=== PATIENT | female | born 1995 | race Caucasian/White ===

== ENCOUNTER 2021-01-13 21:11 | Observation (INO) | payer BC, SELFPAY ==
--- NOTE | ~2021-01-13 | CT_ITS ---
EXAMINATION: CTA chest PE protocol DATE: 01/14/2021 00:01 CDT INDICATION: Shortness of breath and chest pain. Dyspnea. TECHNIQUE: Computed tomographic angiography (CTA) of the chest was performed with 100 mL Omnipaque-35 0 intravenous contrast. The dose-length product was 1044.33 mGy-cm. Maximum intensity projection 3D-r econstructions of the aorta and other arteries were constructed by the technologist on a separate wor kstation. COMPARISON: None. FINDINGS: Study is technically adequate. Small filling defects noted in left lower lobe segmental and subsegmental pulmonary arteries, consistent with pulmonary embolism, small thrombus burden. Heart si ze upper normal. No significant pleural or pericardial effusion. No evidence for aortic aneurysm or d issection. No mediastinal or hilar lymphadenopathy. Upper abdomen is unremarkable. Small hiatal herni a. No acute osseous abnormality. IMPRESSION: 1. Small filling defects left lower lobe segmental/subsegmental pulmonary arteries, consistent with p ulmonary embolism, small thrombus burden. Reviewed, dictated and finalized at location A. IMPRESSION: 1. Small filling defects left lower lobe segmental/subsegmental pulmonary arter ies, consistent with pulmonary embolism, small thrombus burden.
--- NOTE | ~2021-01-13 | US_ITS ---
EXAMINATION: US venous doppler [facility] DATE: 01/14/2021 07:59 INDICATION: Chest pain. TECHNIQUE: Grayscale ultrasound images without and with compression and Doppler ultrasound images of the bilateral lower extremity veins were obtained. COMPARISON: None. FINDINGS: The visualized portions of right common femoral vein, profunda (deep) femoral vein, femoral vein, pop liteal vein, peroneal veins, posterior tibial veins, and greater saphenous vein outflow are patent. The visualized portions of left common femoral vein, profunda femoral vein, femoral vein, popliteal v ein, peroneal veins, posterior tibial veins, and greater saphenous vein outflow are patent. IMPRESSION: 1. No deep venous thrombosis. Reviewed, dictated and finalized at location B.
--- NOTE | ~2021-01-13 | XR_ITS ---
EXAMINATION: XR chest 2V 01/13/2021 22:31 INDICATION: Right-sided chest pain PROCEDURE: 2 view chest COMPARISON: No prior studies for comparison. FINDINGS: The lungs are clear. The cardiomediastinal silhouette is within normal limits. There are no pleural effusions. There is no pneumothorax suspected. IMPRESSION: 1: NO ACUTE CARDIOPULMONARY DISEASE. Reviewed, dictated and finalized at location A.
[2021-01-13 21:16] VITALS: BP 158/86; PULSE 95; RESP 18; TEMP 36.2; O2SAT 99
[2021-01-13 21:55] VITALS: PULSE 92
[2021-01-13 22:00] VITALS: BP 129/73; PULSE 92; RESP 23; O2SAT 100
[2021-01-13 22:02] VITALS: BP 118/72; PULSE 96; RESP 21; O2SAT 98
[2021-01-13 23:24] LABS: Add Urine Microscopic? YES; Appearance Urine Clear (Clear); Bacteria Urine Trace /hpf; Bilirubin Urine Negative (Negative); Blood Urine Negative (Negative); Color Urine Straw (Yellow); Glucose Urine UA Negative (Negative); Ketones Urine Negative (Negative); Leukocyte Esterase Ur Trace LEU/UL (Negative); Nitrate Urine Negative (Negative); Protein Urine Negative (Negative); RBC Urine 0-2 /hpf (0-2); Specific Grav Ur 1.006 (1.001-1.035); Squamous Epithelial Cell Urine Occasional /hpf (Few); Urobilinogen Urine Negative mg/dL (<2.0)
--- NOTE | 2021-01-13 23:31 | ED.GENADULT ---
HPI - General Adult General Chief complaint: Unspecified <ALICJA Roberts - Last Filed: 01/14/21 01:39> Stated complaint: pain with deep inhalation <ALICJA Roberts - Last Filed: 01/14/21 01:39> Time Seen by Provider: 01/13/21 22:07 <ALICJA Roberts - Last Filed: 01/14/21 01:39> Source: patient <ALICJA Roberts - Last Filed: 01/14/21 01:39> Mode of arrival: ambulatory <ALICJA Roberts - Last Filed: 01/14/21 01:39> Limitations: no limitations <ALICJA Roberts - Last Filed: 01/14/21 01:39> History of Present Illness HPI narrative: Patient is a 25 year old female who presents complaining of right sided chest pain sudden onset this pm. She reports pain is reproducable but also reports shortness of breath. She reports 2nd dose of Moderna vaccine earlier today and reports feeling worse after vaccination. She denies taking otc medications prior to arrival. Patient denies significant medical history. <ALICJA Roberts - Last Filed: 01/14/21 01:39> MD complaint: chest pain <ALICJA Roberts - Last Filed: 01/14/21 01:39> Related Data Home medications: Home Medications Medication Instructions Recorded Confirmed phentermine 15 mg PO DAILY 01/13/21 <ALICJA Roberts - Last Filed: 01/14/21 01:39> Allergies/adverse reactions: Allergies Allergy/AdvReac Type Severity Reaction Status Date / Time No Known Allergies Allergy Verified 01/13/21 22:00 <ALICJA Roberts - Last Filed: 01/14/21 01:39> Review of Systems Review of Systems: Narrative: CONSTITUTIONAL: Denies fever, chills, or sweats. EYES: Denies visual changes, redness, or discharge. ENT: Denies rhinorrhea, congestion, sore throat, or otalgia. CARDIOVASCULAR: Reports chest pain, denies palpitations, or edema. RESPIRATORY: Denies cough, reports dyspnea. GASTROINTESTINAL: Denies abdominal pain, nausea, vomiting, or diarrhea. GENITOURINARY: Denies dysuria or hematuria. SKIN: Denies rash or itching. MUSCULOSKELETAL: Denies back pain, joint pain, or myalgia. NEUROLOGIC: Denies headache, numbness, dizziness, or weakness. PSYCHIATRIC: Denies anxiety or depression. <ALICJA Roberts - Last Filed: 01/14/21 01:39> [facility] [place] Surgical History Surgical History: Surgical History History of tonsillectomy and adenoidectomy <ALICJA Roberts - Last Filed: 01/14/21 01:39> Social History Social History: Social History Smoking status: Current every day smoker Tobacco type: e-cigarettes/vaping Alcohol intake: current Alcohol use details: Occasional Substance use: never <ALICJA Roberts - Last Filed: 01/14/21 01:39> Comments At the time of signature, I have reviewed and agree with nursing past medical, surgical, social, and family history unless otherwise noted. Please see nursing chart for further information. There is no relevant family history pertinent to the presenting complaint. <ALICJA Roberts - Last Filed: 01/14/21 01:39> Exam Narrative: Exam Narrative: GENERAL: Well-appearing, well-nourished, and in no acute distress. HEAD: Normocephalic, atraumatic. EYES: EOMI. No redness or drainage. Conjunctiva are normal. ENT: Mucous membranes pink and moist. CHEST: No respiratory distress. Clear to auscultation. HEART: Regular rate and rhythm. No murmur appreciated. Normal peripheral pulses. GI: Soft, nontender without rebound, or guarding. No distention. Bowel sounds normal in all quadrants. MUSCULOSKELETAL: No bony tenderness. EXTREMITIES: Normal range of motion. No edema. SKIN: Warm, dry, no rash. NEURO: No focal deficits. Alert and oriented x3. Gait steady. PSYCH: Normal affect. No signs of depression or anxiety. 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
[2021-01-13 23:39] LABS: Basophils Percent Auto 0.4 % (0.2-1.2); Eosinophils Absolute Auto 0.2 K/mm3 (0-0.3); Eosinophils Percent Auto 2.4 % (0-4.4); Hemoglobin 12.3 g/dL (12.0-15.0); Immature Granulocyte Absolute 0.03 K/mm3 (0.00-0.031); Immature Granulocyte Percent A 0.3 % (0-0.5); Lymphocytes Absolute Auto 1.67 K/mm3 (0.9-3.2); Lymphocytes Percent Auto 16.6 % (18.3-44.2); Mean Corpuscular HGB Conc 32.4 g/dl (32-36); Mean Corpuscular Hemoglobin 25.8 pg (26-34); Mean Corpuscular Volume 79.8 fl (80-100); Mean Platelet Volume 8.5 fl (7.4-10.4); Monocytes Absolute Auto 0.6 K/mm3 (0.1-0.6); Monocytes Percent Auto 5.5 % (2.6-8.5); Neutrophils Absolute Auto 7.5 K/mm3 (1.3-6.7); Neutrophils Percent Auto 74.8 % (45.5-73.1); Platelet Count Result 243 k/mm3 (150-375); Red Blood Count 4.76 M/mm3 (4.2-5.4); Red Cell Distribution Width 13.3 % (11.5-14.5); White Blood Count 10.1 K/mm3 (4.5-10.0)
--- NOTE | 2021-01-13 23:39 | PC.NURSE ---
CT scan delayed due to pt request for Zofran. Will call CT scan after pt is medicated.
[2021-01-13 23:41] LABS: Estimated CRCL calculation 139 ml/min; Estimated Glomerular Filt Rate > 60
[2021-01-13] MEDS: ONDANSETRON INJ 4 MG/2 ML VIAL IV PUSH (23:48)
[2021-01-14] VITALS (7 sets, daily range): BP systolic 125–141; BP diastolic 55–85; PULSE 79–101; RESP 16–26; TEMP 36.2–36.6; O2SAT 94–100; BMI 52.2
[2021-01-14 00:04] LABS: Troponin I < 0.012 ng/mL (0.000-0.034)
--- NOTE | 2021-01-14 00:08 | ECG_ITS ---
Measurements Intervals [place] Rate: 87 P: 20 SC: 171 QRS: 39 QRSD: 80 T: 3 QT: 321 QTc: 388 Interpretive Statements SINUS RHYTHM LOW QRS VOLTAGE IN PRECORDIAL LEADS MINIMAL Q WAVES- INFERIOR LEADS BORDERLINE T WAVE ABNORMALITY- ANTERIOR LEADS BORDERLINE ECG Electronically Signed On 01-14-2021 7:00:34 CDT by Adebayo Max D.O.
[2021-01-14 00:23] LABS: Alanine Aminotransferase 15 U/L (4-35); Albumin Level 4.1 g/dL (3.5-5.1); Alkaline Phosphatase 86 U/L (38-126); Anion Gap 7 mmol/L (8-16); Aspartate Amino Transferase 25 U/L (14-36); Bilirubin,Total 0.1 mg/dL (0.2-1.3); Blood Urea Nitrogen 10 mg/dL (7-17); Calcium 9.2 mg/dL (8.4-10.2); Carbon Dioxide 30 mmol/L (22-30); Chloride 104 mmol/L (98-107); Estimated CRCL calculation 139 ml/min; Estimated Glomerular Filt Rate > 60; Glucose 86 mg/dL (65-105); Potassium 3.5 mmol/L (3.4-5.0); Sodium 141 mmol/L (137-145)
[2021-01-14] MEDS: ENOXAPARIN 30 MG/0.3 ML SYRINGE SUB-Q (01:50)
[2021-01-14] MEDS: ENOXAPARIN 120 MG/0.8 ML SYRINGE SUB-Q (02:01)
--- NOTE | 2021-01-14 02:17 | ADMGEN ---
This patient, Laura Spence, was admitted to [address] [place] [address] Room 300-01. Patient/family oriented to hospital policies and general routines including ID bracelet, bed and alarms, visiting hours, pain management, procedures, bathroom and other care routines, personal items, smoking policy, room service/diet, and visiting hours. Information on how to activate the Rapid Response Team has been discussed. Patient/Family are encouraged to report perceived risks to care and to ask questions if they do not understand what they are told or what they should do.
[2021-01-14] MEDS: HYDROcodone/acetaminophen (*CRX) 5-325 MG TABLET 1 TAB PO (04:25)
--- NOTE | 2021-01-14 12:15 | PM.SD2 ---
Same Day Admit/Disch: HPI History of Present Illness Chief complaint: Pulmonary Embolism Narrative: Laura Spence is a 25 year old healthy female who presents to ED with complaints of right-sided chest pain. Patient had her COVID vaccine yesterday morning. Last evening, she developed lightheadedness, dizziness and chest pain with deep breathing. Pain is mostly under her right breast and in right flank and back. Sudden onset. Tylenol did help the pain. She has chronic headaches that she describes as migraine which she has once a day but no headache currently. She has never had this type of chest pain before. No long car rides or plane rides. No prolonged bedrest. No pedal edema. Does complain of right calf and thigh pain. Her maternal great grandmother had DVT but no other family members with VTE. No fevers. She does feel chilled at times since admission. No anosmia and dysgeusia. She does have heavy menses and her last menstrual period was 2 weeks ago. No dysuria or hematuria. No GI symptoms. She is on phentermine and has lost about 10 lb since starting this medication about a month ago. No diabetes or thyroid disease. Because of these symptoms she presented to the emergency room for evaluation. She is on Nexplanon. [facility] Past Medical History Medical History No pertinent past medical history Surgical History Surgical History History of tonsillectomy and adenoidectomy Family History Family History Other DVT (deep venous thrombosis) Diabetes mellitus Social History Social History Social History: Patient vapes daily. Occasional alcohol use about once every 2 weeks. She lives at home with her roommate and her . No history of drug use. She is not currently working. She is a full code. She nominated her mother to be the individual would make medical decisions for her if she is not able. Smoking status: Current every day smoker Tobacco type: e-cigarettes/vaping Alcohol intake: current Drinks per week: 1 Alcohol use details: Occasional Substance use: never Gender identity (if verbalized by the patient): Female Spiritual care concerns: No Same Day Admit/Disch: Med Pre-admit Medications Home Medications Medication Instructions Recorded Confirmed Type phentermine 15 mg PO BID 01/13/21 01/14/21 History Exam Narrative: Exam Narrative: AF 97.1 125/55 79 20 100% ra Gen - well-nourished, well-developed female in no acute respiratory distress who is nontoxic-appearing lying semi recumbent in bed HEENT - normocephalic. Atraumatic. Pupils equal round and reactive. Extraocular motions intact. Sclera clear and anicteric. Nares patent with ring in place. Oropharynx was clear. No oral lesions. Moist mucous membranes. Tongue was midline and was pierced. Palate gretta symmetrically. No facial asymmetry. Neck - neck was supple. No dominant adenopathy, thyromegaly or masses. No axillary adenopathy. 2+ carotid upstrokes without bruits. Chest - lungs are clear to auscultation bilaterally. No wheezes or crackles. Breast exam was deferred. CV - heart was regular rate and rhythm. S1-S2. No murmurs gallops or rubs. Abd - abdomen was soft. Nontender. Nondistended. Positive bowel sounds. No organomegaly or masses. Ext - no clubbing, cyanosis or edema. 2+ DP pulses bilaterally. Negative Moustapha's Neuro - patient is alert and oriented x4. Strength is 5/5 in both upper and lower extremities. Cranial nerves 2-12 are intact. Speech is clear. Psych - normal mood and affect. Patient is pleasant and cooperative. Skin - warm and dry. No rashes noted. DS: Data Data Completed and Pending Labs on day of discharge: Labs from last 24 hours 01/13/21 01/13/21 01/13/21 2
[2021-01-14] MEDS: APIXABAN 5 MG TABLET 10 MG PO (12:28)
== END 2021-01-14 13:24 | disposition home or self-care (01) ==
LOC: ANHED 01-14 00:35 → ANH3MEDSUR 01-14 01:50
PROVIDERS: Admitting Provider Internal Medicine; Emergency Provider Nurse Practitioner; PCP Nurse Practitioner; Visit Provider Internal Medicine
DX: I26.94 Multiple subsegmental thrombotic pulmonary emboli without acute cor pulmonale (principal); F17.290 Nicotine dependence, other tobacco product, uncomplicated
CPT/HCPCS: 36415; 71046; 71275; 80053; 81001; 81025; 84484; 85025; 93005; 93970; 96365; 96372; 96374; 99285; A9270; G0378; J0131; J1650; J2405; Q9967

== ENCOUNTER 2022-02-23 21:46 | Emergency (ER) | payer BC, OTHER, SELFPAY ==
--- NOTE | ~2022-02-23 | XR_ITS ---
EXAMINATION: XR chest 2V Exam Date/Time: 02/23/2022 22:40 CDT HISTORY: chest pain and shortness of breath,X1 WK,HX PE Comparison: 01/13/2021. RESULT: Lines, tubes, and devices: None. Lungs and pleura: Clear. Cardiomediastinal silhouette: Stable cardiomediastinal silhouette. Other: No acute osseous or upper abdominal finding. IMPRESSION: No acute cardiopulmonary process. Reviewed, dictated and finalized at location K.
--- NOTE | 2022-02-23 21:50 | ECG_ITS ---
Measurements Intervals [place] Rate: 70 P: 26 [place]: 176 QRS: 47 QRSD: 110 T: 15 QT: 340 QTc: 368 Interpretive Statements SINUS RHYTHM MINIMAL Q WAVES- INFERIOR LEADS BORDERLINE ECG Electronically Signed On 02-24-2022 6:14:55 CDT by Adebayo Max D.O.
[2022-02-23 21:58] VITALS: BP 138/73; PULSE 66; RESP 16; TEMP 36.9; O2SAT 99
[2022-02-23 22:15] LABS: Basophils Absolute Auto 0.1 K/mm3 (0.0-0.1); Basophils Percent Auto 0.4 % (0.2-1.2); Eosinophils Absolute Auto 0.2 K/mm3 (0-0.3); Eosinophils Percent Auto 1.2 % (0-4.4); Hematocrit 39.7 % (37.0-47.0); Hemoglobin 12.5 g/dL (12.0-15.0); Immature Granulocyte Absolute 0.11 K/mm3 (0.00-0.031); Immature Granulocyte Percent A 0.7 % (0-0.5); Lymphocytes Absolute Auto 3.13 K/mm3 (0.9-3.2); Lymphocytes Percent Auto 21.2 % (18.3-44.2); Mean Corpuscular HGB Conc 31.5 g/dl (32-36); Mean Corpuscular Volume 79.2 fl (80-100); Mean Platelet Volume 8.4 fl (7.4-10.4); Monocytes Absolute Auto 0.9 K/mm3 (0.1-0.6); Monocytes Percent Auto 6.2 % (2.6-8.5); Neutrophils Absolute Auto 10.4 K/mm3 (1.3-6.7); Neutrophils Percent Auto 70.3 % (45.5-73.1); Platelet Count Result 289 k/mm3 (150-375); Red Blood Count 5.01 M/mm3 (4.2-5.4); Red Cell Distribution Width 13.7 % (11.5-14.5); White Blood Count 14.8 K/mm3 (4.5-10.0)
[2022-02-23 22:26] LABS: Alanine Aminotransferase 21 U/L (6-35); Albumin Level 4.6 g/dL (3.5-5.1); Alkaline Phosphatase 95 U/L (38-126); Anion Gap 6 mmol/L (8-16); Aspartate Amino Transferase 20 U/L (14-36); Bilirubin,Total < 0.1 mg/dL (0.2-1.3); Blood Urea Nitrogen 14 mg/dL (7-17); Calcium 9.3 mg/dL (8.4-10.2); Carbon Dioxide 28 mmol/L (22-30); Chloride 105 mmol/L (98-107); Estimated CRCL calculation 152 ml/min; Estimated Glomerular Filt Rate > 60; Glucose 95 mg/dL (65-110); INR 1.1; Lipase 40 U/L (23-300); Potassium 4.2 mmol/L (3.4-5.0); Prothrombin Time 13.6 Seconds (11.1-14.7); Sodium 139 mmol/L (137-145)
[2022-02-23 22:27] LABS: Partial Thromboplastin Time 31.8 SECONDS (22.3-36.8)
[2022-02-23 22:38] LABS: Troponin I < 0.012 ng/mL (0.000-0.034)
--- NOTE | 2022-02-23 23:53 | ED.CHESTPAIN ---
HPI - Chest Pain General Chief Complaint: Chest Pain <RUDY Dyson Last Filed: 02/24/22 04:15> Stated Complaint: chest discomfort and shortness of breath <RUDY Dyson Last Filed: 02/24/22 04:15> Time Seen by Provider: 02/23/22 23:24 <RUDY Dyson Last Filed: 02/24/22 04:15> Source: patient <RUDY Dyson Last Filed: 02/24/22 04:15> Mode of arrival: ambulatory <RUDY Dyson Last Filed: 02/24/22 04:15> Limitations: no limitations <RUDY Dyson Last Filed: 02/24/22 04:15> History of Present Illness HPI narrative: Patient is a 26-year-old female who presents the ED with report of midsternal CP and SOB. Patient reports over the last week, she has had increased pain in her midsternal chest. She has also had a dry cough over the past 3 days. She states the CP has been worse with taking a deep breath and with coughing. She was seen at [facility] ED in [facility] last night at which point she had a CTA of her chest, which did not show any pulmonary embolism, but she reports did show some fluid around her heart. She is unsure if they used the term pericardial effusion however. She does note a history of PE last December. She was on Eliquis for 6 months and is no longer taking this. Patient was scheduled to see her primary care doctor tomorrow morning, but was told if things got worse to come to the ED. Patient has not tried anything for pain today. Denies any fever, chills, abdominal pain, nausea, vomiting, pain or swelling in her legs, rhinorrhea, congestion. <RUDY Dyson Last Filed: 02/24/22 04:15> Related Data Home Medications: Home Medications Medication Instructions Recorded Confirmed phentermine 15 mg capsule 15 mg PO BID 01/13/21 01/14/21 <RUDY Dyson Last Filed: 02/24/22 04:15> Allergies/Adverse Reactions: Allergies Allergy/AdvReac Type Severity Reaction Status Date / Time No Known Allergies Allergy Verified 01/13/21 22:00 <Valerie Iyer PA-C - Last Filed: 02/24/22 04:15> Review of Systems Review of Systems: CONSTITUTIONAL: Denies fever, chills, or sweats. ENT: Denies rhinorrhea, congestion. CARDIOVASCULAR: Reports midsternal pleuritic CP. Denies palpitations or BLE edema. RESPIRATORY: Reports dry cough and pain with taking deep breath. GASTROINTESTINAL: Denies abdominal pain, nausea, vomiting. SKIN: Denies rash or itching. MUSCULOSKELETAL: Denies back pain. NEUROLOGIC: Denies headache, numbness, tingling, or weakness. <Valerie Iyer PA-C - Last Filed: 02/24/22 04:15> All systems reviewed & are unremarkable except as noted in HPI and below <Valerie Iyer PA-C - Last Filed: 02/24/22 04:15> [facility] Past Medical History Medical History: Medical History No pertinent past medical history <Valerie Iyer PA-C - Last Filed: 02/24/22 04:15> Surgical History Surgical History: Surgical History History of tonsillectomy and adenoidectomy <Valerie Iyer PA-C - Last Filed: 02/24/22 04:15> Family History Family History: Family History Other DVT (deep venous thrombosis) Diabetes mellitus <Valerie Iyer PA-C - Last Filed: 02/24/22 04:15> Social History Social History: Social History Social History: Patient vapes daily. Occasional alcohol use about once every 2 weeks. She lives at home with her roommate and her . No history of drug use. She is not currently working. She is a full code. She nominated her mother to be the individual would make medical decisions for her if she is not able. Smoking status: Current every day smoker Tobacco type: e-cigarettes/vaping Alcohol intake: current Drinks per week: 1
[2022-02-24] VITALS (9 sets, daily range): BP systolic 117–147; BP diastolic 75–104; PULSE 67–71; RESP 14–20; O2SAT 94–97
[2022-02-24] MEDS: KETOROLAC (*BKC) 60 MG/2 ML VIAL IM (00:54)
[2022-02-24 01:15] LABS: Troponin I < 0.012 ng/mL (0.000-0.034)
== END 2022-02-24 02:56 | disposition home or self-care (01) ==
PROVIDERS: Emergency Provider Emergency Medicine; PCP Nurse Practitioner
DX: R07.1 Chest pain on breathing (principal); F17.290 Nicotine dependence, other tobacco product, uncomplicated; Z86.711 Personal history of pulmonary embolism; R94.31 Abnormal electrocardiogram [ECG] [EKG]
CPT/HCPCS: 36415; 71046; 80053; 83690; 84484; 85025; 85610; 85730; 93005; 96372; 99283; J1885

== ENCOUNTER 2022-05-22 21:02 | Emergency (ER) | payer BC, OTHER, SELFPAY ==
--- NOTE | ~2022-05-22 | XR_ITS ---
EXAMINATION: XR ankle LT min 3V DATE: 05/22/2022 21:59 INDICATION: Left ankle injury post fall TECHNIQUE: Anteroposterior, oblique, mortise, and lateral views of the left ankle were obtained. COMPARISON: None. FINDINGS: Alignment is normal. No fracture. Joint spaces are well maintained. No ankle joint effusion. Soft t issue swelling about the lateral malleolus. IMPRESSION: 1. No osseous abnormality. Reviewed, dictated and finalized at location A. IMPRESSION: 1. No osseous abnormality.
[2022-05-22 21:18] VITALS: BP 123/67; PULSE 77; RESP 17; TEMP 36.3; O2SAT 100
--- NOTE | 2022-05-22 23:20 | PC.NURSE ---
Addendum entered by Rachel Steiner RN 05/22/22 23:34: Pt left ED at 2320. Original Note: Patient stated she is leaving and does not want to wait anymore. Patient informed of risks of leaving without seeing a provider. Patient was wheeled out of the ED by her boyfriend.
== END 2022-05-22 23:20 | disposition left against medical advice (07) ==
LOC: ANHED 23:38
PROVIDERS: Emergency Provider Emergency Medicine; PCP Nurse Practitioner
DX: O9A.211 Injury, poisoning and certain other consequences of external causes complicating pregnancy, first trimester (principal); S99.912A Unspecified injury of left ankle, initial encounter; Z3A.00 Weeks of gestation of pregnancy not specified; W01.0XXA Fall on same level from slipping, tripping and stumbling without subsequent striking against object, initial encounter
CPT/HCPCS: 73610; 81025; 99199

== ENCOUNTER 2022-05-23 09:17 | Emergency (ER) | payer BC, OTHER, SELFPAY ==
[2022-05-23 09:29] VITALS: BP 140/70; PULSE 80; RESP 18; TEMP 36.6; O2SAT 99
--- NOTE | 2022-05-23 09:37 | ED.LOWEXIN ---
HPI - Extremity Injury (Lower) General Chief Complaint: Extremity Injury, Lower Stated Complaint: Request X-ray Resuts from Last Night Time Seen by Provider: 05/23/22 09:20 History of Present Illness HPI Narrative: 26-year-old female presents to the emergency room for evaluation of left ankle pain. Patient states that she missed stepped yesterday and twisted her left ankle. Reports that she was in the emergency room yesterday and had imaging completed but left prior to being seen by a provider due to length of stay. Patient states that she is unable to ambulate due to the discomfort. Related Data Allergies Allergy/AdvReac Type Severity Reaction Status Date / Time No Known Allergies Allergy Verified 05/22/22 21:21 Review of Systems Review of Systems: CONSTITUTIONAL: Denies fever, chills, or sweats. EYES: Denies visual changes, redness, or discharge. ENT: Denies rhinorrhea, congestion, sore throat, or otalgia. CARDIOVASCULAR: Denies chest pain, palpitations, or edema. RESPIRATORY: Denies cough or dyspnea. GASTROINTESTINAL: Denies abdominal pain, nausea, vomiting, or diarrhea. GENITOURINARY: Denies dysuria or hematuria. SKIN: Denies rash or itching. MUSCULOSKELETAL: Reports left ankle pain NEUROLOGIC: Denies headache, numbness, dizziness, or weakness. PSYCHIATRIC: Denies anxiety or depression. [facility] Past Medical History Medical History No pertinent past medical history Surgical History Surgical History History of tonsillectomy and adenoidectomy Family History Family History Other DVT (deep venous thrombosis) Diabetes mellitus Social History Social History Social History: Patient vapes daily. Occasional alcohol use about once every 2 weeks. She lives at home with her roommate and her . No history of drug use. She is not currently working. She is a full code. She nominated her mother to be the individual would make medical decisions for her if she is not able. Smoking status: Current every day smoker Tobacco type: e-cigarettes/vaping Alcohol intake: current Drinks per week: 1 Alcohol use details: Occasional Substance use: never Gender identity (if verbalized by the patient): Female Spiritual care concerns: No Exam Narrative: GENERAL: Well-appearing, well-nourished, no physical limitations, and in no acute distress. HEAD: Normocephalic, atraumatic. EYES: Conjunctivae normal, PERRLA and EOMI. CHEST: Clear to auscultation. No respiratory distress. No wheezes rales or rhonchi. HEART: Regular rate and rhythm. No murmur heard. Normal peripheral pulses. EXTREMITIES: Left ankle: Tenderness to the lateral malleolus, minimal soft tissue swelling. No acute bony abnormality. No joint laxity. Limited range of motion with eversion inversion, dorsiflexion and plantarflexion. Neurovascular is intact distally SKIN: Warm, dry, no rash. No noted wounds NEURO: No focal deficits. Alert and oriented x3. MAEW. CN's II-XI intact bilaterally, normal gait PSYCH: Cooperative. Normal mood and affect. Course Vital Signs Vital signs: Vital Signs Temperature 36.6 C 05/23/22 09:29 Pulse Rate 80 05/23/22 09:29 Respiratory Rate 18 05/23/22 09:29 Blood Pressure 140/70 05/23/22 09:29 Pulse Oximetry 99 05/23/22 09:29 Oxygen Delivery Room Air 05/23/22 09:29 Temperature 36.6 C 05/23/22 09:29 Pulse Rate 80 05/23/22 09:29 Respiratory Rate 18 05/23/22 09:29 Blood Pressure 140/70 05/23/22 09:29 Pulse Oximetry 99 05/23/22 09:29 Oxygen Delivery Room Air 05/23/22 09:29 Discharge Plan Discharge Clinical Impression: Ankle sprain and strain Patient Disposition: Home, Self-Care Condition: Stable Instructions: Antibiotic Form, Ankle Sprain
== END 2022-05-23 10:39 | disposition home or self-care (01) ==
PROVIDERS: Emergency Provider Nurse Practitioner Family; PCP Nurse Practitioner
DX: S93.402A Sprain of unspecified ligament of left ankle, initial encounter (principal); X50.0XXA Overexertion from strenuous movement or load, initial encounter; F17.290 Nicotine dependence, other tobacco product, uncomplicated
CPT/HCPCS: 99283